=== PATIENT | male | born 1975 | race Caucasian/White ===

== ENCOUNTER 2016-08-25 19:55 | Emergency (ER) | payer OTHER ==
[~2016-08-25] VITALS: Ht 172.7 cm; Wt 79.8 kg
[~2016-08-25 19:55] MED LIST: GABA800T3 PO; PHEN100C3 PO
--- NOTE | 2016-08-25 19:56 | NUR ---
PT TAKEN TO BED 7
--- NOTE | 2016-08-25 19:58 | NUR ---
Dr. Lopez evaluating patient at bedside.
[2016-08-25] MEDS ORDERED: NACL 0.9% 1,000 ML IV ONE (20:05)
[2016-08-25] MEDS ORDERED: LORazepam 2 MG/ML VIAL IVP ONE (20:05)
--- NOTE | 2016-08-25 20:12 | NUR ---
X-Ray at bedside.
[2016-08-25 20:15] VITALS: BP 144/92
--- NOTE | 2016-08-25 20:15 | NUR ---
41 Y/O M BIB MOTHER W/C/O SEIZURE X 1 MINUTE WHICH A LOT OF MOVEMENTS ON ARMS. 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 PT ON MONITOR, IN O2 2LT. IV LINE PLACE ON L HAND, ER NOTIFIED.
[2016-08-25 20:36] LABS: BASOPHILS # (AUTO) 0.1 K/uL (0.00-0.22); BASOPHILS % (AUTO) 1.5 % (0.0-2.0); EOSINOPHILS # (AUTO) 0.3 K/uL (0-0.4); EOSINOPHILS % (AUTO) 3.8 % (0.0-4.0); HEMOGLOBIN 15.6 g/dL (12.0-18.0); LYMPHOCYTES # (AUTO) 2.1 K/uL (2.0-11.5); LYMPHOCYTES % (AUTO) 27.3 % (20.5-51.1); MEAN CORPUSCULAR HEMOGLOBIN 29 pg (27-31); MEAN CORPUSCULAR HGB CONC 33 g/dL (33-37); MEAN CORPUSCULAR VOLUME 88 fL (80-94); MONOCYTES # (AUTO) 0.5 K/uL (0.8-1.0); MONOCYTES % (AUTO) 6.7 % (1.7-9.3); NEUTROPHILS # (AUTO) 4.5 K/uL (1.8-7.7); NEUTROPHILS % (AUTO) 60.7 % (42.2-75.2); PLATELET COUNT (AUTO) 193 K/uL (140-450); RED BLOOD CELL COUNT(AUTO) 5.36 MIL/uL (4.20-6.10); RED CELL DISTRIBUTION WIDTH 12.6 % (11.6-13.7); WHITE BLOOD COUNT (AUTO) 7.5 K/uL (4.8-10.8)
[2016-08-25 21:01] LABS: ALANINE AMINOTRANSFERASE 42 U/L (12-78); ALBUMIN 3.9 g/dL (3.4-5.0); ALCOHOL, BLOOD < 3 mg/dL (<3); ALKALINE PHOSPHATASE 132 U/L (46-116); ANION GAP 26.4 (8-16); ASPARTATE AMINOTRANSFERASE 23 U/L (15-37); CALCIUM 9.2 mg/dL (8.5-10.1); CARBON DIOXIDE 18.3 mmol/L (21-32); CHLORIDE 100 mmol/L (98-107); CREATININE 1.6 mg/dL (0.6-1.3); GFR ARICAN-AMERICAN 62 mL/min (>90); GFR NON ARICAN-AMERICAN 51 mL/min (>90); POTASSIUM 3.7 mmol/L (3.5-5.1); SODIUM SERUM 141 mmol/L (136-145); TOTAL BILIRUBIN 0.2 mg/dL (0.0-1.0); TOTAL PROTEIN, SERUM 8.1 g/dL (6.4-8.2); UREA NITROGEN, BLOOD 11 mg/dL (7-18)
[2016-08-25 21:03] LABS: ACETAMINOPHEN < 0.5 ug/ml (10-30); PHENYTOIN (DILANTIN) 13.6 ug/ml (10.0-20.0); SALICYLATE < 2.8 mg/dL (2.8-20.0)
[2016-08-25 21:04] LABS: INR 1.2 (0.8-1.2); PARTIAL THROMBOPLASTIN TIME 28.1 secs (22-35.6); PROTHROMBIN TIME 11.2 secs (10.8-13.4)
[2016-08-25 21:11] LABS: GLUCOSE 164 mg/dL (74-106)
[2016-08-25] MEDS ORDERED: PHENYTOIN 100 MG CAPER PO ONE (21:20)
[2016-08-25 21:33] VITALS: BP 133/77
--- NOTE | 2016-08-25 21:33 | NUR ---
Patient discharged with v/s stable. Written and verbal after care instructions given and explained TO PT AND MOTHER. Patient AND MOTHER verbalized understanding. Wheel Chair Assisted with by caregiver AND EMT. All questions addressed prior to discharge. Advised to follow up with PMD.
== END 2016-08-25 21:33 | disposition home or self-care (01) ==
LOC: MED 19:55
DX: G40.89 Other seizures (principal); J45.909 Unspecified asthma, uncomplicated; E11.9 Type 2 diabetes mellitus without complications; Z88.1 Allergy status to other antibiotic agents
CPT/HCPCS: 36415; 71010; 80053; 80185; 85025; 85610; 85730; 96361; 96374; 99285; G0480; G0482; J2060; J7030; Q0092

== ENCOUNTER 2016-11-01 19:57 | Inpatient (IN) | payer OTHER ==
[~2016-11-01] VITALS: Ht 170.2 cm; Wt 78.0 kg
--- NOTE | 2016-11-01 20:06 | NUR ---
PT ASSISTED TO BED 3 AT THIS TIME.
--- NOTE | 2016-11-01 20:10 | NUR ---
41 Y/O M BIB MOTHER W/C/O SEIZURE ACTIVY. MOTHER STATES PT HAS A HX OF SEIZURES FOR WHICH TAKES DILANTIN 425MG PER DAY AND GABAPENTIN 2400MG AT DAY. 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 ALERT AND ORIENTED X 3. AWAKE AND ALERT, ON AUTOMATION CONSULTANT, SINUS RHYTHM, VSS.
[2016-11-01 20:18] VITALS: BP 123/77
[2016-11-01] MEDS ORDERED: NACL 0.9% 1,000 ML IV ONE (20:40)
[2016-11-01] MEDS ORDERED: LORazepam 2 MG/ML VIAL IVP ONE (20:40)
[2016-11-01] MEDS ORDERED: LORazepam 2 MG/ML VIAL ONE (20:43)
--- NOTE | 2016-11-01 20:45 | NUR ---
SEIZURE ACTIVITY NOTED X 5 MINUTES. SEIZURE ACTIVITY FROM 2034 TO 2039. ATIVAN 1MG GIVEN IV PUSH PER ER MD VERBAL ORDERS. PT PLACE IN O2 2LTVIA NC. VSS, NO S/S OF DISTRESS NOTED AFTER SEIZURE ACTIVITY. WILL CONT TO MONITOR. ER MD MADE AWARE.
[2016-11-01 20:48] LABS: BASOPHILS # (AUTO) 0.1 K/uL (0.00-0.22); BASOPHILS % (AUTO) 1.5 % (0.0-2.0); EOSINOPHILS # (AUTO) 0.3 K/uL (0-0.4); EOSINOPHILS % (AUTO) 4.2 % (0.0-4.0); HEMATOCRIT 44.1 % (36-52); HEMOGLOBIN 14.5 g/dL (12.0-18.0); LYMPHOCYTES # (AUTO) 1.1 K/uL (2.0-11.5); LYMPHOCYTES % (AUTO) 17.5 % (20.5-51.1); MEAN CORPUSCULAR HEMOGLOBIN 29 pg (27-31); MEAN CORPUSCULAR HGB CONC 33 g/dL (33-37); MEAN CORPUSCULAR VOLUME 87 fL (80-94); MONOCYTES # (AUTO) 0.5 K/uL (0.8-1.0); MONOCYTES % (AUTO) 7.2 % (1.7-9.3); NEUTROPHILS # (AUTO) 4.4 K/uL (1.8-7.7); NEUTROPHILS % (AUTO) 69.6 % (42.2-75.2); PLATELET COUNT (AUTO) 168 K/uL (140-450); RED BLOOD CELL COUNT(AUTO) 5.07 MIL/uL (4.20-6.10); RED CELL DISTRIBUTION WIDTH 12.7 % (11.6-13.7); WHITE BLOOD COUNT (AUTO) 6.4 K/uL (4.8-10.8)
[2016-11-01 20:57] LABS: INR 1.1 (0.8-1.2); PARTIAL THROMBOPLASTIN TIME 30.5 secs (22-35.6); PROTHROMBIN TIME 11.2 secs (10.8-13.4)
[2016-11-01 20:58] LABS: ANION GAP 6.7 (8-16); CALCIUM 8.5 mg/dL (8.5-10.1); CARBON DIOXIDE 31.3 mmol/L (21-32); CREATININE 1.4 mg/dL (0.7-1.3)
--- NOTE | 2016-11-01 21:00 | NUR ---
PT RESTING IN BED, VSS. IN O2 2LT, NO S/S OF DISTRESS NOTED AT THE MOMENT. CONT ON HEALTH INFORMATICS INSTRUCTOR, WILL CONT TO MONITOR.
[2016-11-01 21:02] LABS: PHENYTOIN (DILANTIN) 16.5 ug/ml (10.0-20.0)
[2016-11-01 21:04] LABS: ALBUMIN 3.7 g/dL (3.4-5.0); TOTAL BILIRUBIN 0.2 mg/dL (0.0-1.0); TOTAL PROTEIN, SERUM 7.5 g/dL (6.4-8.2)
[2016-11-01] MEDS ORDERED: HYDROcodone/APAP 7.5/325 MG 1 TAB PO PRN (21:20)
[2016-11-01] MEDS ORDERED: DOCUSATE SODIUM 100 MG GELCAP PO PRN (21:20)
[2016-11-01] MEDS ORDERED: ACETAMINOPHEN 325 MG TAB PO PRN (21:20)
[2016-11-01] MEDS ORDERED: ONDANSETRON 4 MG/2 ML VIAL IM/IVP PRN (21:20)
[2016-11-01] MEDS ORDERED: MORPHINE SULFATE 2 MG/ML SYR IVP PRN (21:20)
[2016-11-01 21:35] LABS: APPEARANCE,URINE CLEAR (CLEAR); BILIRUBIN,URINE NEGATIVE (NEGATIVE); BLOOD, URINE NEGATIVE (NEGATIVE); LEUKOCYTE ESTERASE ,URINE NEGATIVE (NEGATIVE); NITRITE, URINE NEGATIVE (NEGATIVE); PH,URINE 5.5 (5.0-9.0); PROTEIN,URINE NEGATIVE (NEGATIVE); UGLUCOSE NEGATIVE (NEGATIVE); UROBILINOGEN,URINE 0.2 EU/dL (0.2 - 1)
--- NOTE | 2016-11-01 21:37 | NUR ---
[facility] Admited to TELEMETRY. Will go to room. Belongings list completed. Report to BERNARDO ODOM.
[2016-11-01 21:40] LABS: COLOR,URINE STRAW (YELLOW)
[2016-11-01 21:41] LABS: BACTERIA,URINE None Seen /HPF (None Seen); RBC,URINE NONE SEEN /HPF (0-5); SQUAMOUS EPITHELIAL CELL,UR None Seen /LPF (0-3 (FEW)); WBC,URINE NONE SEEN /HPF (0-5)
--- NOTE | 2016-11-01 21:55 | NUR ---
PT TRASFERED TO [facility]IA [employer]. HISTOLOGY MANAGER IN BED. NO S/S OF DISTRESS OR SEIZURE ACTIVITY NOTED DURING TRASFER.
[2016-11-01 21:58] LABS: CHOL/HDL RATIO 5.8 (1-4.5); FREE T4 (FREE THYROXINE) 0.92 ng/dL (0.76-1.46); PHOSPHORUS 3.9 mg/dL (2.5-4.9); THYROID STIMULATING HORMONE 1.16 uIU/mL (0.34-3.74)
[2016-11-01 21:59] LABS: MAGNESIUM 1.8 mg/dL (1.8-2.4)
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
[2016-11-01] MEDS: NACL 0.9% 1,000 ML IV SCH (22:26)
--- NOTE | 2016-11-01 23:41 | NUR ---
PT BACK FROM CT DEPARTMENT, CT HEAD WITHOUT CONTRAST DONE, PUDDING AND JUICE GIVEN, TOLERATED WELL, ALL NEEDS ATTENDED.
[2016-11-02] VITALS: BP 111/72
[2016-11-02] MEDS ORDERED: LORazepam 1 MG TAB PO PRN (00:40)
[2016-11-02] MEDS ORDERED: LORazepam 2 MG/ML VIAL IVP PRN ×2 (01:15→01:30)
[2016-11-02] MEDS ORDERED: PHENYTOIN 100 MG CAPER PO SCH ×2 (01:30→21:00)
[2016-11-02] MEDS ORDERED: PHENYTOIN 100 MG/4 ML UDC PO SCH ×2 (02:00→21:00)
[2016-11-02] MEDS ORDERED: ATORVASTATIN 20 MG TAB PO SCH ×2 (02:00→09:00)
[2016-11-02] MEDS ORDERED: ECOTRIN 81 MG TABEC PO SCH (02:00)
--- NOTE | 2016-11-02 02:00 | NUR ---
FIRST DOSE OF ASPIRIN AND LIPITOR GIVEN PO WITH EDUCATION PROVIDED, TOLERATED WELL, MONITORED CLOSELY.
--- NOTE | 2016-11-02 03:55 | NUR ---
PT SLEEPING, EASILY AROUSABLE, VITAL SIGNS STABLE, DENIES ANY PAIN, NO SEIZURE ACTIVITY SO FAR, MONITORED CLOSELY.
[2016-11-02 04:00] VITALS: BP 119/64
--- NOTE | 2016-11-02 05:55 | NUR ---
REGIONAL AIRLINE PILOT KARL UNABLE TO DRAW AM LABS, PT IS A HARD STICK, WILL TRY AGAIN LATER, SCD'S APPLIED TO BLE, PT WENT BACK TO SLEEP, NO SEIZURE EPISODE SINCE ADMISSION, MONITORED CLOSELY.
--- NOTE | 2016-11-02 06:30 | NUR ---
AM LABS DRAWN, CHEST X-RAY DONE, PT AAOX3, FORGETFUL, NO SEIZURE EPISODE NOTED, IVF INFUSING WELL, MONITORED CLOSELY.
[2016-11-02 06:32] LABS: BASOPHILS # (AUTO) 0.1 K/uL (0.00-0.22); BASOPHILS % (AUTO) 1.4 % (0.0-2.0); EOSINOPHILS # (AUTO) 0.2 K/uL (0-0.4); EOSINOPHILS % (AUTO) 3.9 % (0.0-4.0); HEMATOCRIT 45.1 % (36-52); HEMOGLOBIN 14.8 g/dL (12.0-18.0); LYMPHOCYTES # (AUTO) 1.3 K/uL (2.0-11.5); LYMPHOCYTES % (AUTO) 22.2 % (20.5-51.1); MEAN CORPUSCULAR HEMOGLOBIN 29 pg (27-31); MEAN CORPUSCULAR HGB CONC 33 g/dL (33-37); MEAN CORPUSCULAR VOLUME 87 fL (80-94); MONOCYTES # (AUTO) 0.3 K/uL (0.8-1.0); MONOCYTES % (AUTO) 5.5 % (1.7-9.3); NEUTROPHILS # (AUTO) 3.8 K/uL (1.8-7.7); PLATELET COUNT (AUTO) 156 K/uL (140-450); RED BLOOD CELL COUNT(AUTO) 5.18 MIL/uL (4.20-6.10); RED CELL DISTRIBUTION WIDTH 12.7 % (11.6-13.7); WHITE BLOOD COUNT (AUTO) 5.7 K/uL (4.8-10.8)
--- NOTE | 2016-11-02 07:20 | NUR ---
PT AWAKE, NO SIGNS OF DISTRESS, MOTHER AT BEDSIDE, REPORT GIVEN TO BERNARDO ADKINS FOR CONTINUITY OF CARE.
[2016-11-02 07:25] LABS: ANION GAP 9.4 (8-16); CALCIUM 8.1 mg/dL (8.5-10.1); CARBON DIOXIDE 27.5 mmol/L (21-32); CREATININE 1.2 mg/dL (0.7-1.3); POTASSIUM 3.9 mmol/L (3.5-5.1)
[2016-11-02 07:29] LABS: MAGNESIUM 2.1 mg/dL (1.8-2.4); PHOSPHORUS 3.5 mg/dL (2.5-4.9)
--- NOTE | 2016-11-02 07:30 | NUR ---
RECEIVED REPORT FROM BERNARDO ODOM. PT IS SLEEPING IN BED BUT EASILY AWAKEN, PT IS A/OX3, AMBULATES WITH ASSIST, SKIN IS INTACT, PT IS ON O2 2L NC, NO S/S OF RESPIRATORY DISTRESS OR DISCOMFORT NOTED, DISCUSSED PLAN OF CARE WITH PT, PT ABLE TO VERBALIZE UNDERSTANDING, SAFETY/FALL/SEIZURE PRECAUTIONS ARE IN PLACE, CALL LIGHT IS WITHIN REACH, WILL CONTINUE TO MONITOR.
[2016-11-02 08:00] VITALS: BP 105/57
[2016-11-02] MEDS: PHENYTOIN 100 MG CAPER PO SCH ×2 (09:00→20:39)
[2016-11-02] MEDS ORDERED: ASPIRIN 81 MG TAB.CHEW PO SCH (09:00)
[2016-11-02] MEDS ORDERED: GABAPENTIN 100 MG CAP PO SCH ×2 (09:00)
--- NOTE | 2016-11-02 09:04 | NUR ---
PATIENT HAS BEEN SCREENED AND CATEGORIZED HIGH NUTRITION RISK. PATIENT WILL BE SEEN WITHIN 1-2 DAYS OF ADMISSION. 11/02/16-11/03/[address]
[2016-11-02] MEDS: GABAPENTIN 600 MG, GABAPENTIN 200 MG PO SCH ×6 (09:11→20:40)
--- NOTE | 2016-11-02 09:11 | NUR ---
DUE MEDICATIONS GIVEN, PT TOLERATED WELL, PT IS RESTING IN BED, PATIENT'S MOTHER IS AT BEDSIDE, CALL LIGHT WITHIN REACH.
--- NOTE | 2016-11-02 10:51 | NUR ---
PATIENT WALKING AROUND THE OBANDO USING A WALKER ACCOMPANIED BY PHYSICAL THERAPY.
--- NOTE | 2016-11-02 11:45 | NUR ---
ADMINISTRATION MANAGER IS AT PATIENT'S BEDSIDE AT THIS TIME.
[2016-11-02 12:00] VITALS: BP 109/75
--- NOTE | 2016-11-02 13:00 | NUR ---
PT IS RESTING IN BED AT THIS TIME, NO S/S OF RESPIRATORY DISTRESS OR DISCOMFORT NOTED, PATIENT'S MOTHER IS AT PT BEDSIDE, CALL LIGHT WITHIN REACH, WILL CONTINUE TO MONITOR.
[2016-11-02] MEDS: NACL 0.9% 1,000 ML IV SCH (13:57)
--- NOTE | 2016-11-02 14:00 | NUR ---
11/02/16 RD INITIAL ASSESSMENT COMPLETED PLEASE REFER TO NUTRITION ASSESSMENT UNDER CARE ACTIVITY FOR ESTIMATED NUTRITIONAL NEEDS. 1. CONSIDER SWITCH FROM MECHANICAL SOFT DIET TO LOW FAT, MECHANICAL SOFT DIET 2. RD TO FOLLOW-UP 2-3 DAYS; HIGH RISK NAYA MIMS RD
--- NOTE | 2016-11-02 14:04 | NUR ---
CM NOTE INITIAL REVIEW FAXED TO [facility] (FAX# [phone], ATTN: SORAYA [phone]) AND [facility] (FAX# [phone], ATTN: TEJA #[phone])
--- NOTE | 2016-11-02 15:00 | NUR ---
PT IS SLEEPING IN BED AT THIS TIME, CALL LIGHT IS WITHIN REACH.
[2016-11-02 16:00] VITALS: BP 105/57
--- NOTE | 2016-11-02 17:30 | NUR ---
PT IS SITTING UP IN BED EATING DINNER, ALL NEEDS MET AT THIS TIME, CALL LIGHT WITHIN REACH.
--- NOTE | 2016-11-02 19:20 | NUR ---
RECEIVED REPORT FROM BERNARDO ADKINS AT BEDSIDE. INITIAL ASSESSMENT COMPLETED. PT AAOX3. MOTHER AT BEDSIDE. PT AMBULATES WITH ASSIST. PT'S SKIN IS INTACT. PT HAS IV ON LEFT HAND G 20; ASYMPTOMATIC, PATENT AND INTACT INFUSING FLUIDS WELL. ORIENTED PT AND MOTHER TO ROOM AND SURROUNDINGS AND USE OF CALL LIGHT. EXPLAINED PLAN OF CARE TO PT AND MOTHER. SAFETY/FALL MEASURES IN PLACE. SEIZURE PRECAUTIONS IN PLACE. WILL CONTINUE TO MONITOR PT. Addendum: 11/03/16 at 0306 by Inez Infante RN PT WEARING SCDS.
--- NOTE | 2016-11-02 19:41 | NUR ---
PT ENDORSED TO BERNARDO JOSE. FOR CONTINUITY OF CARE, PT STABLE AT THIS TIME. PATIENT'S MOTHER IS AT BEDSIDE.
[2016-11-02 20:00] VITALS: BP 119/62
[2016-11-02] MEDS: levETIRAcetam 500 MG TAB PO SCH (20:40)
--- NOTE | 2016-11-02 20:49 | NUR ---
PT TOLERATED 2100 MEDS WELL. MOTHER AT BEDSIDE. WILL CONTINUE TO MONITOR PT.
[2016-11-02] MEDS ORDERED: levETIRAcetam 500 MG TAB PO SCH (21:00)
--- NOTE | 2016-11-02 22:30 | NUR ---
PT STABLE. PT LOOKING AT A CELL PHONE WITH HIS MOTHER WHO IS AT BEDSIDE. WILL CONTINUE TO MONITOR PT.
[2016-11-03] VITALS: BP 100/69
--- NOTE | 2016-11-03 01:46 | NUR ---
PT SLEEPING AT THIS TIME. NO SIGNS OF DISTRESS OR DISCOMFORT NOTED. WILL CONTINUE TO MONITOR PT.
[2016-11-03 04:00] VITALS: BP 118/71
--- NOTE | 2016-11-03 04:14 | NUR ---
PT'S VITAL SIGNS STABLE. WILL CONTINUE TO MONITOR PT.
--- NOTE | 2016-11-03 06:08 | NUR ---
PT SLEEPING AT THIS TIME. NO DISTRESS NOTED. MOTHER AT BEDSIDE. CALL LIGHT WITHIN REACH.
[2016-11-03] MEDS: NACL 0.9% 1,000 ML IV SCH (06:37)
[2016-11-03 06:51] LABS: BASOPHILS # (AUTO) 0.1 K/uL (0.00-0.22); EOSINOPHILS # (AUTO) 0.3 K/uL (0-0.4); EOSINOPHILS % (AUTO) 4.4 % (0.0-4.0); HEMATOCRIT 44.3 % (36-52); HEMOGLOBIN 14.6 g/dL (12.0-18.0); LYMPHOCYTES # (AUTO) 1.1 K/uL (2.0-11.5); LYMPHOCYTES % (AUTO) 18.3 % (20.5-51.1); MEAN CORPUSCULAR HEMOGLOBIN 29 pg (27-31); MEAN CORPUSCULAR HGB CONC 33 g/dL (33-37); MEAN CORPUSCULAR VOLUME 88 fL (80-94); MONOCYTES # (AUTO) 0.4 K/uL (0.8-1.0); MONOCYTES % (AUTO) 7.6 % (1.7-9.3); NEUTROPHILS # (AUTO) 3.9 K/uL (1.8-7.7); NEUTROPHILS % (AUTO) 68.7 % (42.2-75.2); PLATELET COUNT (AUTO) 161 K/uL (140-450); RED BLOOD CELL COUNT(AUTO) 5.05 MIL/uL (4.20-6.10); RED CELL DISTRIBUTION WIDTH 12.7 % (11.6-13.7); WHITE BLOOD COUNT (AUTO) 5.9 K/uL (4.8-10.8)
[2016-11-03 07:12] LABS: ANION GAP 12.7 (8-16); CALCIUM 7.9 mg/dL (8.5-10.1); CARBON DIOXIDE 27.3 mmol/L (21-32); CREATININE 1.1 mg/dL (0.7-1.3)
[2016-11-03 07:17] LABS: MAGNESIUM 1.9 mg/dL (1.8-2.4); PHOSPHORUS 3.1 mg/dL (2.5-4.9)
--- NOTE | 2016-11-03 07:23 | NUR ---
ENDORSED PLAN OF CARE TO DAY SHIFT NURSE. PT IN STABLE CONDITION.
--- NOTE | 2016-11-03 07:24 | NUR ---
RECEIVED REPORT AT BEDSIDE BY NIGHT RN. PATIENT RESTING IN BED. MOTHER AT BEDSIDE. ALERT AND ORIENTED X3. DENIES DISCOMFORT. IV SITE PATENT AND INTACT. NO SEIZURE ACTIVITY THROUGHOUT THE NIGHT. PATIENT DENIES DIZZINESS. CALL LIGHT WITHIN REACH. ALL NEEDS MET.
[2016-11-03 08:00] VITALS: BP 107/76
[2016-11-03] MEDS: levETIRAcetam 500 MG TAB PO SCH (08:48)
[2016-11-03] MEDS: PHENYTOIN 100 MG CAPER PO SCH (08:48)
[2016-11-03] MEDS: GABAPENTIN 600 MG, GABAPENTIN 200 MG PO SCH ×2 (08:48)
[2016-11-03] MEDS ORDERED: PHENYTOIN 100 MG CAPER PO SCH (09:00)
[2016-11-03] MEDS ORDERED: KEP500 PO (09:21)
--- NOTE | 2016-11-03 10:00 | NUR ---
PATIENT RESTING IN BED. MOTHER AT BEDSIDE. DENIES PAIN. TOLERATED BREAKFAST. CALL LIGHT WITHIN REACH.
[2016-11-03 10:29] LABS: HEMOGLOBIN A1C 5.7 % (4.8-5.6); T4 (THYROXINE) 6.2 ug/dL (4.5 - 12.0)
[2016-11-03 12:00] VITALS: BP 95/62
--- NOTE | 2016-11-03 12:07 | NUR ---
CM NOTE CONCURRENT REVIEW FAXED TO [facility] (FAX# [phone], ATTN: ODILON #[phone]) AND [facility] (FAX# [phone], ATTN: TEJA #[phone])
--- NOTE | 2016-11-03 14:00 | NUR ---
PATIENT LETHARGIC. AWAKENS WITH LIGHT STIMULI. PATIENT SEEN BY PHYSICAL THERAPY, TOLERATED AMBULATION. NO S/S OF ACUTE DISTRESS. MOTHER NOTIFIED OF DISCHARGE ORDERS.
--- NOTE | 2016-11-03 14:52 | NUR ---
PATIENT MOTHER HERE AT BEDSIDE TO TAKE PATIENT HOME. DISCHARGE INSTRUCTIONS WITH FOLLOW UP TEACHING GIVEN TO MOTHER AND PATIENT. D/C MEDICATIONS GIVEN, VERBALIZED UNDERSTANDING. IV REMOVED, CANULA INTACT. PATIENT IS AWAKE ALERT AND ORIENTED. AMBULATED TO WHEELCHAIR. PATIENT WHEELED TO FRONT LOBBY WITH MOTHER. NO S/S OF DISTRESS.
--- NOTE | 2016-11-03 15:11 | NUR ---
PHYSICAL THERAPY CO-SIGN The Physical Therapy Progress Notes documented by Veneer Sorter have been reviewed. Reviewed/Co-Signed by: Angeline Ang PT Documentation Done by:SOFIA SORENSEN ORDER EXPEDITER POC REVIEWED W/ ORDER EXPEDITER; PROGRESSING W/ FUNC MOB. Addendum: 11/03/16 at 1511 by Angeline Ang PT Amended: Links added.
== END 2016-11-03 14:49 | disposition home or self-care (01) | DRG 100 ==
LOC: MED 19:57 → MTU 21:17
PROVIDERS: ADMIT Family Medicine; ATTEND Family Medicine
DX: G40.409 Other generalized epilepsy and epileptic syndromes, not intractable, without status epilepticus (principal); N17.0 Acute kidney failure with tubular necrosis; G90.9 Disorder of the autonomic nervous system, unspecified; E78.5 Hyperlipidemia, unspecified; J45.909 Unspecified asthma, uncomplicated; E11.9 Type 2 diabetes mellitus without complications; G93.89 Other specified disorders of brain; Z82.5 Family history of asthma and other chronic lower respiratory diseases; Z87.820 Personal history of traumatic brain injury; Z88.1 Allergy status to other antibiotic agents; Z79.899 Other long term (current) drug therapy; Z82.49 Family history of ischemic heart disease and other diseases of the circulatory system
CPT/HCPCS: 36415; 70450; 71010; 80048; 80053; 80185; 81001; 82150; 82550; 83036; 83690; 83735; 83880; 84100; 84436; 84439; 84443; 84479; 84484; 85025; 85610; 85730; 87081; 93880; 96361; 96374; 97110; 97116; 97530; 99285; J2060; J7030; Q0092

== ENCOUNTER 2016-12-09 21:00 | Emergency (ER) | payer OTHER ==
[~2016-12-09] VITALS: Ht 170.2 cm; Wt 78.0 kg
[~2016-12-09 21:00] MED LIST changes: +KEP500 PO
[2016-12-09 21:14] VITALS: BP 141/75
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
--- NOTE | 2016-12-09 21:20 | NUR ---
BIB WHEELCHAIR TO ER BED 3
[2016-12-09] MEDS ORDERED: NACL 0.9% 1,000 ML IV ONE (22:00)
[2016-12-09] MEDS ORDERED: LORazepam 2 MG/ML VIAL IVP ONE (22:00)
[2016-12-09 22:34] LABS: PROTHROMBIN TIME 10.9 secs (10.8-13.4)
[2016-12-09 22:37] LABS: ALBUMIN 4.4 g/dL (3.4-5.0); ANION GAP 31.8 (8-16); CARBON DIOXIDE 12.9 mmol/L (21-32); CREATININE 1.6 mg/dL (0.7-1.3); POTASSIUM 3.7 mmol/L (3.5-5.1); TOTAL BILIRUBIN 0.3 mg/dL (0.0-1.0)
[2016-12-09 22:43] LABS: PHENYTOIN (DILANTIN) 20.9 ug/ml (10.0-20.0)
--- NOTE | 2016-12-09 23:04 | NUR ---
IV removed, catheter intact and site benign. Applied folded 4x4 gauze and tape to stop bleeding.
--- NOTE | 2016-12-09 23:04 | NUR ---
Note angel in EDM - 12/09/16 at 2347 by ALLYSON Patient discharged with v/s stable. Written and verbal after care instructions given and explained. Patient verbalized understanding. Ambulatory with by parent. All questions addressed prior to discharge. Advised to follow up with PMD.
[2016-12-09 23:18] LABS: BASOPHILS % (AUTO) 0.3 % (0.0-2.0); EOSINOPHILS % (AUTO) 2.6 % (0.0-4.0); HEMATOCRIT 48.1 % (36-52); HEMOGLOBIN 15.9 g/dL (12.0-18.0); LYMPHOCYTES % (AUTO) 26.8 % (20.5-51.1); MEAN CORPUSCULAR HEMOGLOBIN 30 pg (27-31); MEAN CORPUSCULAR HGB CONC 33 g/dL (33-37); MEAN CORPUSCULAR VOLUME 89 fL (80-94); MONOCYTES % (AUTO) 6.4 % (1.7-9.3); NEUTROPHILS % (AUTO) 63.9 % (42.2-75.2); PLATELET COUNT (AUTO) 204 K/uL (140-450); RED BLOOD CELL COUNT(AUTO) 5.39 MIL/uL (4.20-6.10); RED CELL DISTRIBUTION WIDTH 13.5 % (11.6-13.7)
[2016-12-09 23:19] LABS: EOSINOPHILS # (AUTO) 0.3 K/uL (0-0.4); LYMPHOCYTES # (AUTO) 3.1 K/uL (2.0-11.5); MONOCYTES # (AUTO) 0.8 K/uL (0.8-1.0); NEUTROPHILS # (AUTO) 7.5 K/uL (1.8-7.7)
[2016-12-09 23:20] LABS: WHITE BLOOD COUNT (AUTO) 11.8 K/uL (4.8-10.8)
--- NOTE | 2016-12-10 02:00 | NUR ---
Patient appears to be resting comfortably in bed. Vital Signs within normal limits. Respirations even and unlabored.
--- NOTE | 2016-12-10 03:00 | NUR ---
Patient discharged with v/s stable. Written and verbal after care instructions given and explained. Patient verbalized understanding. Ambulatory with by parent. All questions addressed prior to discharge. Advised to follow up with PMD.
[2016-12-10 03:01] VITALS: BP 121/76
== END 2016-12-10 03:01 | disposition home or self-care (01) ==
LOC: MED 21:00
DX: G40.89 Other seizures (principal); R03.0 Elevated blood-pressure reading, without diagnosis of hypertension; J45.909 Unspecified asthma, uncomplicated; Z79.899 Other long term (current) drug therapy; Z88.1 Allergy status to other antibiotic agents
CPT/HCPCS: 36415; 80053; 80185; 85025; 85610; 85730; 96361; 96374; 99284; J2060; J7030

== ENCOUNTER 2017-12-12 20:39 | Emergency (ER) | payer OTHER ==
[~2017-12-12] VITALS: Ht 177.8 cm; Wt 77.1 kg
[2017-12-12 20:44] VITALS: BP 121/88
--- NOTE | 2017-12-12 20:47 | NUR ---
PT TRIAGED AND SENT TO ER LOBBY. EDMD AWARE OF PT STATUS
--- NOTE | 2017-12-12 21:01 | NUR ---
PT RETURN FROM XRAY TO LOBBY
--- NOTE | 2017-12-12 23:12 | NUR ---
PT TAKEN TO BED 7
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
--- NOTE | 2017-12-13 01:15 | NUR ---
Dr. Emery evaluating patient at bedside.
[2017-12-13 01:55] VITALS: BP 118/88
--- NOTE | 2017-12-13 01:55 | NUR ---
Patient discharged with v/s stable. Written and verbal after care instructions given and explained. Patient alert, oriented and verbalized understanding of instructions. Wheel Chair Assisted with to car. All questions addressed prior to discharge. ID band removed. Patient advised to follow up with PMD. Rx of MOTRIN given. Patient educated on indication of medication including possible reaction and side effects. Opportunity to ask questions provided and answered.
== END 2017-12-13 01:55 | disposition other institution (70) ==
LOC: MED 20:39
DX: S46.911A Strain of unspecified muscle, fascia and tendon at shoulder and upper arm level, right arm, initial encounter (principal); J45.909 Unspecified asthma, uncomplicated; Z79.899 Other long term (current) drug therapy; Z88.1 Allergy status to other antibiotic agents; V43.62XA Car passenger injured in collision with other type car in traffic accident, initial encounter; Y93.I9 Activity, other involving external motion; Y92.488 Other paved roadways as the place of occurrence of the external cause; Y99.8 Other external cause status
CPT/HCPCS: 73030; 99284